=== PATIENT | male | born 1975 | race African-American/Black ===

== ENCOUNTER 2020-11-27 14:35 | Emergency (ER) | payer OTHER ==
[~2020-11-27] VITALS: Ht 182.9 cm; Wt 220.0 kg
[2020-11-27] MEDS ORDERED: IBUPROFEN 600 MG TABLET. PO ONE (15:15)
[2020-11-27] MEDS ORDERED: ACETAMINOPHEN 500 MG TABLET PO ONE (15:15)
--- NOTE | 2020-11-27 15:15 | PHYS DOC ---
Adult General Chief Complaint Chief Complaint: COUGH HPI HPI Patient is a 45-year-old male presents to the emergency department complaining of fever chills and body aches with a nonproductive cough for the past week. Patient states he is in the [employer], was vaccinated for the COVID-19 virus approximately 10 to 12 days ago, is not sure which brand of COVID-19 virus immunization he was given. States that approximately 1 week ago he started having flulike symptoms. Patient states he was in a group of classmates in the [employer] in which they have been in quarantine for the past 7 days related to one of their classmates testing positive for the COVID-19 virus. Patient states that he noticed fever chills body aches and exhaustion approximately 7 days ago which progressed to changes in smell and which foods smelled like ammonia to him, he developed a dry hacking cough, and increased muscle aches and 2 bouts of diarrhea today over the past 7 days. Patient denies nausea, vomiting, constipation. Denies chest pains, nasal congestion, chest congestion, rashes of the skin. Patient denies neck pain, or visual changes. Patient denies any other physical complaints or physical concerns. (LINNEA BLUM APRN) Review of Systems Review of Systems 14 body systems of review of systems have been reviewed. See HPI for pertinent positives and negative responses, otherwise all other systems are negative, nonpertinent or noncontributory. (LINNEA BLUM APRN) Physical Exam Physical Exam Constitutional: Well developed, well nourished, no acute distress, non-toxic appearance. Patient coughing during physical examination. HENT: Normocephalic, atraumatic, bilateral external ears normal, oropharynx moist, no oral exudates, nose normal. Oropharynx moist, pink, no infectious process appreciated, no laryngeal edema appreciated, patient speaking in normal voice tones. Bilateral TMs within normal limits, no lymphadenopathy of the head or neck appreciated. No trismus, no drooling appreciated. Eyes: PERRLA, EOMI, conjunctiva normal, no discharge. Neck: Normal range of motion, no tenderness, supple, no stridor. No meningismus signs, no nuchal rigidity, no C-spine tenderness to palpation. Cardiovascular:Heart rate regular rhythm, no murmur, heart sounds S1-S2 auscultation. Lungs & Thorax: Bilateral breath sounds clear to auscultation all lung padilla, no adventitious lung sounds appreciated. Abdomen: Bowel sounds normal, soft, no tenderness, no masses, no pulsatile masses. Skin: Warm, dry, no erythema, no rash. Back: No tenderness, no CVA tenderness. Extremities: No tenderness, no cyanosis, no clubbing, ROM intact, no edema. Neurologic: Alert and oriented X 3, normal motor function, normal sensory function, no focal deficits noted. Psychologic: Affect normal, judgement normal, mood normal. (LINNEA BLUM APRN) EKG EKG [] (LINNEA BLUM APRN) Radiology/Procedures Radiology/Procedures PATIENT: MARLO HERNANDEZ ACCOUNT: [id number] : 1975 LOCATION: ER AGE: 45 SEX: M EXAM STATUS: REG ER ORD. PHYSICIAN: LINNEA BLUM APRN REASON: COUGH, FEVER , CHILLS AFTER COVID-19 EXPOSURE PROCEDURE: CHEST AP ONLY Exam performed: One view chest. Indication: Reason: COUGH, FEVER , CHILLS AFTER COVID-19 EXPOSURE / Spl. Instructions: / History: Date of Service: 11/27/2020 3:12 PM Comparison: None available. Single AP upright portable view chest findings: Cardiomediastinal silhouette is within limits of normal. No acute infiltrates, effusion or pneumothorax is detected. The bony structures are normal. Impression: No acute cardiopulmonary process is detected. Electronically signed by: Selena Woods MD (11/27/2020 4:19 PM) [facility] DICTATED AND SIGNED BY: SELENA WOODS MD DATE: 11/27/20 1619 CC: LINNEA BLUM APRN; TC RODRIGUEZ DO; PCP,NO ~MTH0 0 (LINNEA BLUM APRN) Heart Score C/O Chest Pain: No Risk Factors: Risk Factors: DM, Current or recent (<one month) smoker, HTN, HLP, family history of CAD, obesity. Risk Scores: Risk Factors: DM, Current or recent (<one month) smoker, HTN, HLP, family history of CAD, obesity. (LINNEA BLUM APRN) Course & Med Decision Making Course & Med Decision Making Pertinent Labs and Imaging studies reviewed. (See chart for details) 45-year-old male, vital signs reviewed, presents emergency department concerning fever, chills, body aches, cough over the past week after having a known exposure to COVID-19 virus. Physical examination consistent with viral syndrome presentation. Will draw CBC, CMP, lactic acid, blood cultures x2 related to presenting oral temperature of 100.7, rapid flu swab, routine COVID-19 virus testing, portable chest x-ray. Will give Tylenol and Motrin p.o. for body aches and pains and low-grade fever of 100.7 oral temp. Patient unable to tolerate portable chest x-ray, states his abdominal wall is cramping, physical examination of the patient noted muscle spasm left upper quadrant, will give IV Ativan and wait a period of time prior to retry of portable chest x-ray. 1 L normal saline IV ordered Upon reexamination of patient, patient states he is feeling much better, patient has a creatinine of 2.0, patient states he is aware of this lab value and has an appointment to see a brown sourer next week. Will give second liter of normal saline. Lab results equivocal, patient's rapid flu A/B negative. Chest x-ray negative for acute or concerning findings per radiologist interpretation. Patient's routine COVID-19 testing pending, should be available within 48 hours. We will diagnosed with viral syndrome and PUI, however lower likelihood of Covid 19 virus related to recent vaccination process. Patient gave verbal understanding of discharge home instructions, diagnosis of viral syndrome, strict follow-up with brown sourer next week, follow-up with [facility] for ongoing aches and pains related to viral syndrome, return to ER. Cautions and concerns, patient had no further questions or concerns, states he feels much better and is ready to go home, patient will be discharged home without incident. (LINNEA BLUM APRN) Course & Med Decision Making I oversaw on the above date of service of this patient and discussed the care with the SENIOR SUPPLY CHAIN ANALYST. I agree with the findings, plan of care, and disposition as documented. Electronically signed, Tc Rodriguez DO (TC RODRIGUEZ DO) Shawna Disclaimer Dragon Disclaimer This electronic medical record was generated, in whole or in part, using a voice recognition dictation system. (LINNEA BLUM APRN) Departure Departure: Impression: Primary Impression: Viral syndrome Additional Impression: Person under investigation for COVID-19 Disposition: 01 DC HOME SELF CARE/HOMELESS Condition: STABLE Referrals: PCP,BERTA (PCP) Patient Instructions: Viral Syndrome Additional Instructions: Please continue to take [id number] Tylenol and/or Motrin for ongoing aches and pains and recurrent fevers. Please continue to self isolate and quarantine as directed by your [employer] employer. Please keep your appointment with your brown sourer coming up soon. Return to the emergency department for worsening symptoms or other concerns. I have attached information for the COVID-19 virus to this document, please review. You have been tested for or diagnosed with COVID-19. It is an infection caused by a new type of coronavirus. COVID-19 will cause cold-like or mild flu symptoms in most. It can cause more severe symptoms like problems breathing in some. There is no treatment for COVID-19. The body will clear the infection over time. Self-care will help to ease discomfort. Steps to Take: Self-Care Rest as needed. Healthy habits may help you feel better. Steps include: Choose healthy foods including fruits and vegetables. Drink water throughout the day. Get plenty of sleep each night. If you smoke, try to quit. It may ease breathing. Avoid alcohol. Keep Others Healthy The virus can spread to others. Droplets are released every time you sneeze or cough. The droplets can get into the mouth, nose, or eyes of people near you and lead to infection. To lower the chances of spreading COVID-19 to others: Stay at home until your doctor has said it is safe to leave. If you tested positive this will mean staying isolated until both of the following are true: At least 7 days have passed since the start of illness. You are free of fever for at least 72 hours without the use of medicine. During this time: - Avoid public areas, events, or transportation. Do not return to work or school until your doctor has said it is safe to do so. - Call ahead if you need to go to a medical center. Let them know you may have COVID-19. It will help them guide you where to go. They may also ask you to wear a facemask when you come to the office. - If you call for emergency medical services, let them know you may have COVID- 19. While at home: - Try to avoid close contact with others. Stay about 6 feet away. - If possible, spend most of your time in a separate room from others. - Use a face mask if you will be in close contact with others such as sharing a room or vehicle. - Have someone wipe down common surfaces in the home. Use household library serials assistant every day on areas like doorknobs, counters, or sinks. - Cough or sneeze into a tissue. Throw the tissue away right after use. If a tissue is not available, cough or sneeze into your elbow. - Wash your hands often. Wash them after sneezing or coughing. Use soap and water and wash for at least 20 seconds. Alcohol based hand pillowcase cleaner can be used if soap and water is not available. - Do not prepare food for others. Avoid sharing personal items like forks, spoons, or toothbrushes. - Avoid close contact with pets while you are sick. There is no evidence of the virus passing to pets. This is a safety step until more is known about this virus. Isolation can be frustrating. Social interaction can help. Keep in touch with friends and family through phone and tech options. You can still interact with others in your home, just keep a safe distance of about 6 feet. Follow-up: Your doctors office will check in with you to see if there are any changes in your health. You may be asked to keep track of symptoms to share with them. They will also let you know when you are clear to be in public again. Problems to Look Out For: Contact your doctor if your recovery is not going as you expect. Get emergency care if you have problems such as: - Trouble breathing - Nonstop chest pain or pressure - Changes in awareness, confusion, or problems waking - Lips or face have bluish color - Worsening of symptoms If you think you have an emergency, call for emergency medical services right away. As taken from [facility] EMERGENCY DEPARTMENT GENERAL DISCHARGE INSTRUCTIONS Thank you for coming to [facility] (ED) today and trusting us with you care. We trust that you had a positivie experience in our Emergency Department. If you wish to speak to the department management, you may call the director at [phone]. YOUR FOLLOW UP INSTRUCTIONS ARE FOLLOWS: 1. Do you have a private Doctor? If you do not have a private doctor, please ask for a resource list of physicians or clinics that may be able to assist you with follow up care. 2. The Emergency Physician has interpreted your x-rays. The X-Ray specialist will also review them. If there is a change in the findings, you will be notified in 48 hours when at all possible. 3. A lab test or culture has been done, your results will be reviewed and you will be notified if you need a change in treatment. ADDITIONAL INSTRUCTIONS AND INFORMATION: 1. Your care today has been supervised by a physician who is specially trained in emergency care. Many problems require more than one evaluation for a complete diagnosis and treatment. We recommend that you schedule your follow up appointment as recommended to ensure complete treatment of you illness or injury. If you are unable to obtain follow up care and continue to have a problem, or if your condition worsens, we recommend that you return to the ED. 2. We are not able to safely determine your condition over the phone nor are we able to give sound medical advice over the phone. For these safety reasons, if you call for medical advice we will ask you to come to the ED for further evaluation. 3. If you have any questions regarding these discharge instructions please call the ED at [phone]. SAFETY INFORMATION: In the interest of safety, wellness, and injury prevention; we encourage you to wear your sealbelt, if you smoke; quite smoking, and we encourage family to use a protective helmet for bicycling and other sporting events that present an increased risk for head injury. IF YOUR SYMPTOMS WORSEN OR NEW SYMPTOMS DEVELOP, OR YOU HAVE CONCERNS ABOUT YOUR CONDITION; OR IF YOUR CONDITION WORSENS WHILE YOU ARE WAITING FOR YOUR FOLLOW UP APPOINTMENT; EITHER CONTACT YOUR PRIMARY CARE DOCTOR, THE PHYSICIAN WHOSE NAME AND NUMBER YOU WERE GIVEN, OR RETURN TO THE ED IMMEDIATELY. Problem Qualifiers LINNEA BLUM APRN Nov 27, 2020 15:15 TC RODRIGUEZ DO Nov 29, 2020 08:25
[2020-11-27 15:55] LABS: CALCIUM 8.7 mg/dL (8.5-10.1); GFR 43.7; POTASSIUM 4.2 mmol/L (3.5-5.1)
[2020-11-27 15:59] LABS: BASO % 0 % (0-3); EOS # 0.1 x10^3/uL (0.0-0.7); EOS % 1 % (0-3); HEMATOCRIT 43.3 % (39.0-53.0); HEMOGLOBIN 14.2 g/dL (13.0-17.5); LYMPH # 1.3 x10^3/uL (1.0-4.8); LYMPH % 26 % (24-48); MEAN CORPUSCULAR HEMOGLOBIN 31 pg (25-35); MEAN CORPUSCULAR HGB CONC 33 g/dL (31-37); MEAN CORPUSCULAR VOLUME 93 fL (79-100); MONO # 0.6 x10^3/uL (0.0-1.1); MONO % 12 % (0-9); NEUT % 61 % (31-73); PLATELET COUNT 168 x10^3/uL (140-400); RED BLOOD COUNT 4.65 x10^6/uL (4.30-5.70); RED CELL DISTRIBUTION WIDTH 12.8 % (11.5-14.5)
[2020-11-27] MEDS ORDERED: IV NORMAL SALINE 1,000ML 1,000 ML IV ONE ×2 (16:00→16:30)
[2020-11-27 16:01] LABS: ALBUMIN 3.8 g/dL (3.4-5.0); ALBUMIN/GLOBULIN RATIO 0.8 (1.0-1.7); TOTAL BILIRUBIN 0.5 mg/dL (0.2-1.0); TOTAL PROTEIN 8.6 g/dL (6.4-8.2)
[2020-11-27 16:22] LABS: INFLUENZA A PATIENT NEGATIVE (NEGATIVE); INFLUENZA B PATIENT NEGATIVE (NEGATIVE)
--- NOTE | 2020-11-27 16:22 | RAD ---
Exam performed: One view chest. Indication: Reason: COUGH, FEVER , CHILLS AFTER COVID-19 EXPOSURE / Spl. Instructions: / History: Date of Service: 11/27/2020 3:12 PM Comparison: None available. Single AP upright portable view chest findings: Cardiomediastinal silhouette is within limits of normal. No acute infiltrates, effusion or pneumotho rax is detected. The bony structures are normal. Impression: No acute cardiopulmonary process is detected. Electronically signed by: Selena Woods MD (11/27/2020 4:19 PM) [facility]
[2020-11-27 17:30] VITALS: BP 129/79
--- NOTE | 2020-11-29 13:00 | NUR ---
IP note: Call to pt ([phone]) regarding his POSITIVE COVID19 results. Message left requesting return call.
--- NOTE | 2020-11-29 14:49 | NUR ---
Pt returned call @ 1348, notified of positive test result, need to isolate from others for 10 days, and until at least 24 hours fever-free w/o use of meds to lower temp. Pt states he does not have a thermometer at home. Advised to monitor symptoms, when symptoms begin improving and after 10 days from onset, may consider ending isolation. Pt wants to know what strain he has- we are unable to provide info identifying strain. Pt voices understanding of instructions, including when to return to the hospital if symptoms worsen or new symptoms begin. No additional questions at this time.
== END 2020-11-27 18:04 | disposition home or self-care (01) ==
LOC: ER 14:35
DX: U07.1 COVID-19 (principal); B34.9 Viral infection, unspecified; R19.7 Diarrhea, unspecified
CPT/HCPCS: 36415; 71045; 80053; 83605; 85025; 87040; 87804; 96361; 96374; 99284; C9803; J2060; J7030; U0003; U0005